=== PATIENT | male | born 1975 | race Caucasian/White ===

== ENCOUNTER 2018-06-17 10:19 | Emergency (ER) | payer OTHER ==
[~2018-06-17] VITALS: Ht 180.3 cm; Wt 72.6 kg
[2018-06-17 10:23] VITALS: BP 149/95
[2018-06-17] MEDS ORDERED: PROZAC10 MG PO (10:25)
[2018-06-17] MEDS ORDERED: LISINOPRIL10 MG PO (10:25)
[2018-06-17] MEDS ORDERED: NORCO 5-325 TA1 EACH PO (10:53)
[2018-06-17] MEDS ORDERED: PENICILLIN VK500 MG PO (10:53)
== END 2018-06-17 10:55 | disposition home or self-care (01) ==
LOC: M.ERS 10:19
DX: K02.9 Dental caries, unspecified (principal); F17.200 Nicotine dependence, unspecified, uncomplicated

== ENCOUNTER 2018-12-13 15:11 | Emergency (ER) | payer OTHER ==
[~2018-12-13] VITALS: Ht 180.3 cm; Wt 70.3 kg
[~2018-12-13 15:11] MED LIST: LISINOPRIL10 MG PO; NORCO 5-325 TA1 EACH PO; PENICILLIN VK500 MG PO; PROZAC10 MG PO
[2018-12-13] MEDS ORDERED: NORCO 5-325 TA1 EACH PO (16:03)
[2018-12-13] MEDS ORDERED: PENICILLIN V P500 MG PO (16:03)
[2018-12-13] MEDS ORDERED: IBUPROFEN 800800 M1 PO (16:03)
[2018-12-13 16:17] VITALS: BP 145/63
== END 2018-12-13 16:20 | disposition home or self-care (01) ==
LOC: M.ERS 15:11
DX: K04.7 Periapical abscess without sinus (principal); Z90.89 Acquired absence of other organs